=== PATIENT | female | born 1955 | race Caucasian/White ===

== ENCOUNTER 2017-01-29 02:55 | Emergency (ER) | payer OTHER ==
[2017-01-29] MEDS ORDERED: Sodium Chloride 0.9% 10 ML Syringe FLUSH PRN (03:00)
[2017-01-29] MEDS ORDERED: Sodium Chloride 0.9% 1,000 ML IV SCH (03:00)
--- NOTE | 2017-01-29 03:02 | EDM.PDOC ---
ED HPI GENERAL MEDICAL PROBLEM - General Chief Complaint: Cardiovascular Problem Stated Complaint: Racing Heart Time Seen by Provider: 01/29/17 02:59 Source of Information: Reports: Patient, Family, RN, RN Notes Reviewed History Limitations: Reports: No Limitations - History of Present Illness INITIAL COMMENTS - FREE TEXT/NARRATIVE: Patient presents to the emergency room complaining of heart palpitations and a racing heart rate. The patient's is not sure when it started but states when she woke up she felt her heart racing. The patient currently does take any prescription medications. The patient denies any cardiac history. The patient states this has happened a couple times in the past. No formal workup has been done in the past. The patient denies any chest pain. No shortness of breath. The patient denies any nausea. The patient states she has a slight headache. The patient states that she did have some mild heartburn that has subsided prior to presentation. Onset: Today Onset Date: 01/29/17 Duration: Constant - Related Data Allergies Allergy/AdvReac Type Severity Reaction Status Date / Time No Known Allergies Allergy Verified 01/29/17 02:58 Home Meds: Home Meds . [No Known Home Meds] 12/23/13 [History] Past Medical History Other Cardiovascular History: SVT, x3 episodes Social & Family History - Tobacco Use Smoking Status *Q: Never Smoker Years of Tobacco use: 1 - Alcohol Use Days Per Week of Alcohol Use: 0 Number of Drinks Per Day: 0 Total Drinks Per Week: 0 - Recreational Drug Use Recreational Drug Use: No ED ROS GENERAL - Review of Systems Review Of Systems: See Below Constitutional: Denies: Fever, Chills, Weakness Respiratory: Denies: Shortness of Breath, Cough Cardiovascular: Reports: Palpitations, Other (fast heart rate). 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 Denies: Abdominal Pain, Nausea, Vomiting Skin: Reports: No Symptoms Neurological: Reports: Headache. Denies: Dizziness, Numbness, Paresthesia, Tingling ED EXAM, GENERAL - Physical Exam Exam: See Below Exam Limited By: No Limitations General Appearance: Alert, No Apparent Distress Respiratory/Chest: No Respiratory Distress, Lungs Clear, Normal Breath Sounds Cardiovascular: Normal Peripheral Pulses, No Edema, No Murmur, Tachycardia Peripheral Pulses: 2+: Radial (L), Radial (R) GI/Abdominal: Normal Bowel Sounds, Soft, Non-Tender Neurological: Alert, Oriented Skin Exam: Warm, Dry, Intact, Normal Color, No Rash EKG INTERPRETATION EKG Date: 01/29/17 Time: 03:03 Rhythm: other (SVT) Rate (beats/min): 208 [place]: normal P-wave: absent QRS: normal ST-T: normal QT: normal GA/PQ Interval: absent Comparison: NA - no prior EKG EKG Interpretation Comments: EKG #1: SVT; IVCD 01/29/2017 03:27 EKG #2 (post Adenosine) Sinus Rhythm Moderate ST depression Course - Vital Signs Last Recorded V/S: Last Vital Signs Temp 36.4 C 01/29/17 03:59 Pulse 208 H 01/29/17 03:59 Resp 16 01/29/17 03:59 BP 106/77 01/29/17 03:59 Pulse Ox 98 01/29/17 03:59 - Orders/Labs/Meds Orders: Active Orders 24 hr Category Date Time Status EKG 12 Lead [EKG Documentation Completion] [RC] STAT Care 01/29/17 02:59 Active EKG 12 Lead [EKG Documentation Completion] [RC] STAT Care 01/29/17 03:33 Active Sodium Chloride 0.9% [Normal Saline] 1,000 ml Med 01/29/17 03:00 Active IV ASDIRECTED Sodium Chloride 0.9% [Saline Flush] Med 01/29/17 03:00 Active 10 ml FLUSH ASDIRECTED PRN Peripheral IV Insertion Adult [OM.PC] Routine Oth 01/29/17 03:00 Ordered Medication Orders Sodium Chloride (Normal Saline) 1,000 mls @ 999 mls/hr IV ASDIRECTED DAVID Last Admin: 01/29/17 03:16 Dose: 999 mls/hr Sodium Chloride (Saline Flush) 10 ml FLUSH ASDIRECTED PRN PRN Reason: Keep Vein Open Last Admin: 01/29/17 03:45 Dose: 10 ml Labs: Laboratory Tests 01/29/17 01/29/17 Range/Units 03:31 03:31 WBC 8.8 (4.0-10.0) x10^3/uL RBC 4.02 (4.00-5.50) x10^6/uL Hgb 12.4 D (12.0-16.0) g/dL Hct 36.2 (33.0-47.0) % MCV 90.0 (78.0-93.0) fL MCH 30.8 (26.0-32.0) pg MCHC 34.3 (32.0-36.0) g/dL RDW Coeff of Amanda 11.7 (10.0-15.0) % Plt Count 226 (130-400) x10^3/uL Neut % (Auto) 42.7 L (50.0-80.0) % Lymph % (Auto) 48.4 (25.0-50.0) % [place] % (Auto) 6.7 (2.0-11.0) % Eos % (Auto) 2.0 (0.0-4.0) % Baso % (Auto) 0.2 (0.2-1.2) % Sodium 140 (136-145) mmol/L Potassium 3.5 (3.5-5.1) mmol/L Chloride 103 (98-107) mmol/L Carbon Dioxide 29 (21-32) mmol/L BUN 11 (7-18) mg/dL Creatinine 0.8 (0.55-1.02) mg/dL Est Cr Clr Drug Dosing 59.89 mL/min Estimated GFR (MDRD) > 60 Glucose 142 H (74-106) mg/dL Calcium 8.5 (8.5-10.1) mg/dL Phosphorus 4.4 (2.6-4.7) mg/dL Magnesium 2.0 (1.8-2.4) mg/dL Creatine Kinase 47 (26-192) U/L Troponin I < 0.017 (<=0.056) ng/mL TSH, Ultra Sensitive 3.407 (0.358-3.74) uIU/mL Meds: Medications Generic Name Dose Route Start Last Admin Trade Name Freq PRN Reason Stop Dose Admin Sodium Chloride 1,000 mls @ 999 mls/hr 01/29/17 03:00 01/29/17 03:16 Normal Saline IV 999 mls/hr ASDIRECTED DAVID Administration Sodium Chloride 10 ml 01/29/17 03:00 01/29/17 03:45 Saline Flush FLUSH 10 ml ASDIRECTED PRN Administration Keep Vein Open Discontinued Medications Generic Name Dose Route Start Last Admin Trade Name Freq PRN Reason Stop Dose Admin Adenosine 6 mg 01/29/17 03:13 01/29/17 03:24 Adenocard IVPUSH 01/29/17 03:14 6 mg NOW ONE Administration Ondansetron HCl 4 mg 01/29/17 03:17 01/29/17 03:22 Zofran IVPUSH 01/29/17 03:18 4 mg ONETIME ONE Administration Departure - Departure Time of Disposition: 04:09 Disposition: Home, Self-Care 01 Condition: good Clinical Impression: Sustained SVT Instructions: Paroxysmal Supraventricular Tachycardia Referrals: Antonia Garcia MD [Ordering Only Provider] - Forms: ED Department Discharge Additional Instructions: 1. Stay well hydrated and rest 2. Recommend making a follow up appointment with your PCP to discuss future treatment options 3. Call with any questions - Problem List Review Problem List Initiated/Reviewed/Updated: Yes - My Orders Last 24 Hours: My Active Orders 01/29/17 02:59 EKG 12 Lead [EKG Documentation Completion] [RC] STAT 01/29/17 03:00 Sodium Chloride 0.9% [Normal Saline] 1,000 ml IV ASDIRECTED Sodium Chloride 0.9% [Saline Flush] 10 ml FLUSH ASDIRECTED PRN Peripheral IV Insertion Adult [OM.PC] Routine 01/29/17 03:33 EKG 12 Lead [EKG Documentation Completion] [RC] STAT - Assessment/Plan Last 24 Hours: My Active Orders 01/29/17 02:59 EKG 12 Lead [EKG Documentation Completion] [RC] STAT 01/29/17 03:00 Sodium Chloride 0.9% [Normal Saline] 1,000 ml IV ASDIRECTED Sodium Chloride 0.9% [Saline Flush] 10 ml FLUSH ASDIRECTED PRN Peripheral IV Insertion Adult [OM.PC] Routine 01/29/17 03:33 EKG 12 Lead [EKG Documentation Completion] [RC] STAT
[2017-01-29] MEDS ORDERED: Adenosine 6 MG/2 ML SDV IVPUSH ONE (03:13)
[2017-01-29] MEDS ORDERED: Ondansetron 4 MG/2 ML SDV IVPUSH ONE (03:17)
[2017-01-29 04:07] LABS: CHLORIDE,CL 103 mmol/L (98-107); SODIUM,NA 140 mmol/L (136-145)
[2017-01-29 06:19] VITALS: BP 130/86
== END 2017-01-29 04:45 | disposition home or self-care (01) ==
LOC: VM.ED 02:55
DX: I47.1 Supraventricular tachycardia (principal)
CPT/HCPCS: 36415; 80048; 82550; 83735; 84100; 84443; 84484; 85025; 93005; 96365; 96375; 99285; J0153; J2405; J7030; J7050

== ENCOUNTER 2019-03-15 21:10 | Emergency (ER) | payer OTHER ==
[2019-03-15] MEDS ORDERED: Adenosine 6 MG/2 ML SDV IVPUSH ONE (21:19)
[2019-03-15] MEDS ORDERED: Adenosine 6 MG/2 ML SDV ONE (21:25)
[2019-03-15] MEDS ORDERED: Sodium Chloride 0.9% 1,000 ML IV SCH (21:30)
--- NOTE | 2019-03-15 21:32 | EDM.PDOC ---
ED HPI GENERAL MEDICAL PROBLEM - General Stated Complaint: My heart is racing Time Seen by Provider: 03/15/19 21:15 Source of Information: Reports: Patient, Family - History of Present Illness INITIAL COMMENTS - FREE TEXT/NARRATIVE: Patient states approximately one hour ago while sitting at home watching TV she felt her heart start racing felt flushed all over had a little bit of chest pain generalized all over maybe a 1 denies any dizziness lightheadedness and shortness breath nausea or vomiting and states this is happened in the past 2 times last one approximately 2 years ago she states that she has seen cardiology in the past she has had one nuclear stress test which was normal about 3-4 years ago she states every time this happened she is converted with medication she has no other complaints at this time Onset: Today, Sudden Duration: Hour(s): Improves with: Reports: None Worsens with: Reports: None Context: Denies: Activity, Exercise, Lifting Associated Symptoms: Reports: Chest Pain. Denies: Diaphoresis, Headaches, Loss of Appetite, Nausea/Vomiting, Shortness of Breath - Related Data Allergies Allergy/AdvReac Type Severity Reaction Status Date / Time No Known Allergies Allergy Verified 03/15/19 22:06 Home Meds: Home Meds Escitalopram Oxalate 10 mg PO DAILY 03/15/19 [History] Past Medical History Other Cardiovascular History: SVT, x3 episodes ED ROS GENERAL - Review of Systems Review Of Systems: See Below Constitutional: Reports: No Symptoms HEENT: Reports: No Symptoms Respiratory: Reports: No Symptoms Cardiovascular: Reports: Chest Pain. Denies: Blood Pressure Problem, Dyspnea on Exertion, Lightheadedness, Palpitations Endocrine: Denies: No Symptoms GI/Abdominal: Denies: No Symptoms : Reports: No Symptoms Musculoskeletal: Reports: No Symptoms Skin: Reports: No Symptoms Neurological: Reports: No Symptoms Hematologic/Lymphatic: Reports: No Symptoms Immunologic: Reports: No Symptoms ED EXAM, GENERAL - Physical Exam Exam: See Below Exam Limited By: No Limitations General Appearance: Alert, WD/WN, No Apparent Distress. No: Anxious Eye Exam: Bilateral Eye: EOMI, PERRL Throat/Mouth: Normal Inspection, Normal Lips, Normal Teeth, Normal Gums Neck: Normal Inspection, Supple, Non-Tender, Full Range of Motion. No: Carotid Bruit Respiratory/Chest: No Respiratory Distress, Lungs Clear, Normal Breath Sounds, No Accessory Muscle Use Cardiovascular: Normal Peripheral Pulses, Tachycardia. No: No Edema, No Gallop , No JVD, No Murmur, No Rub GI/Abdominal: Normal Bowel Sounds, Soft, Non-Tender, No Organomegaly Back Exam: Full Range of Motion Extremities: Normal Inspection, Normal Range of Motion, No Pedal Edema, Normal Capillary Refill Neurological: Alert, Oriented, CN II-XII Intact, Normal Cognition, Normal Gait, Normal Reflexes, No Motor/Sensory Deficits Psychiatric: Normal Affect, Normal Mood Skin Exam: Warm, Dry, Intact, Normal Color, No Rash. No: Diaphoretic Course - Vital Signs Text/Narrative:: First EKG showed SVT rate of 200 and OS T elevation or depression noted patient was hooked up with IV And normal saline 6 mg of adenosine was pushed in the right before meals patient converted heart rate currently 115 EKG showed no acute ST elevation or depression with normal tachycardia patient states she feels better and has no complaints at this time no chest pain or shortness of breath no lightheaded dizziness no headache or vision changes Labs to be drawn CBC BMP troponin all labs within normal limits Spoke with Dr. Ludwig states patient can been followed up in clinic outpatient start on verapamil 180 mg daily patient was given a prescription for number of 12 and 2 doses one for today and one for tomorrow - Orders/Labs/Meds Orders: Active Orders 24 hr Category Date Time Status EKG 12 Lead [EKG Documentation Completion] [RC] STAT Care 03/15/19 21:18 Ordered BASIC METABOLIC PANEL,BMP [CHEM] Stat Lab 03/15/19 21:18 Ordered CBC WITH AUTO DIFF [HEME] Stat Lab 03/15/19 21:17 Ordered TROPONIN I [CHEM] Stat Lab 03/15/19 21:19 Ordered Sodium Chloride 0.9% [Normal Saline] 1,000 ml Med 03/15/19 21:30 Ordered IV ASDIRECTED Medication Orders Sodium Chloride (Normal Saline) 1,000 mls @ 30 mls/hr IV ASDIRECTED DAVID Meds: Medications Generic Name Dose Route Start Last Admin Trade Name Freq PRN Reason Stop Dose Admin Sodium Chloride 1,000 mls @ 30 mls/hr 03/15/19 21:30 Normal Saline IV ASDIRECTED DAVID Discontinued Medications Generic Name Dose Route Start Last Admin Trade Name Freq PRN Reason Stop Dose Admin Adenosine 6 mg 03/15/19 21:19 Adenocard IVPUSH 03/15/19 21:20 NOW ONE Adenosine 6 mg 03/15/19 21:19 Adenoscan IVPUSH 03/15/19 21:20 ONETIME ONE Adenosine Confirm 03/15/19 21:25 Adenocard Administered 03/15/19 21:26 Dose 6 mg .ROUTE .STK-MED ONE Departure - Departure Time of Disposition: 22:45 Disposition: Home, Self-Care 01 Condition: Good Clinical Impression: SVT (supraventricular tachycardia) - Discharge Information - Problem List & Annotations (1) SVT (supraventricular tachycardia) SNOMED Code(s): 1430739 Code(s): I47.1 - SUPRAVENTRICULAR TACHYCARDIA Status: Acute Current Visit : Yes - My Orders Last 24 Hours: My Active Orders 03/15/19 21:17 CBC WITH AUTO DIFF [HEME] Stat 03/15/19 21:18 EKG 12 Lead [EKG Documentation Completion] [RC] STAT BASIC METABOLIC PANEL,BMP [CHEM] Stat 03/15/19 21:19 TROPONIN I [CHEM] Stat 03/15/19 21:30 Sodium Chloride 0.9% [Normal Saline] 1,000 ml IV ASDIRECTED - Assessment/Plan Last 24 Hours: My Active Orders 03/15/19 21:17 CBC WITH AUTO DIFF [HEME] Stat 03/15/19 21:18 EKG 12 Lead [EKG Documentation Completion] [RC] STAT BASIC METABOLIC PANEL,BMP [CHEM] Stat 03/15/19 21:19 TROPONIN I [CHEM] Stat 03/15/19 21:30 Sodium Chloride 0.9% [Normal Saline] 1,000 ml IV ASDIRECTED
[2019-03-15 22:13] LABS: ANION GAP 14.7 mmol/L (10-20); CHLORIDE,CL 100 mmol/L (98-107); SODIUM,NA 136 mmol/L (136-145)
[2019-03-15 22:28] VITALS: BP 104/68; PULSE 101
[2019-03-15] MEDS ORDERED: Verapamil 240 MG Tab.ER PO ONE (22:51)
== END 2019-03-15 23:04 | disposition home or self-care (01) ==
LOC: VM.ED 21:10
DX: I47.1 Supraventricular tachycardia (principal); Z79.899 Other long term (current) drug therapy
CPT/HCPCS: 36415; 80048; 84484; 85025; 93005; 96361; 96374; 99285; A9270; J0153; J7030